=== PATIENT | female | born 1945 | race Caucasian/White ===

== ENCOUNTER 2016-07-02 10:24 | Day surgery (SDC) | payer MEDICARE ==
[2016-07-02] MEDS ORDERED: PROPOFOL 10 MG/ML VIAL IV ONE (15:46)
[2016-07-02] MEDS ORDERED: LIDOCAINE 2% MDV (20MG/ML) 20ML VIAL IV ONE (15:46)
[2016-07-02] MEDS ORDERED: MIDAZOLAM HCL 2MG/2ML VIAL IV ONE (15:46)
--- NOTE | 2016-07-03 16:30 | Operative Note ---
DATE OF SURGERY: 07/02/2016 OPERATION: COLONOSCOPY to the cecum with cold snare polypectomy. INDICATION: History of adenomatous polyps in the past. The patient returns at this time for surveillance after 5 years. ANESTHESIA: Intravenous sedation was administered by the department of anesthesiology and included Diprivan titrated to effect. PROCEDURE: Following informed consent from this alert individual, including a discussion of the risks and benefits of the procedure and an opportunity for the patient to ask questions, the patient was placed in the left lateral decubitus position. A digital rectal examination was performed. No abnormalities were noted. Following this, the Olympus [id number] video colonoscope was inserted into the rectum without resistance. The rectal mucosa had a normal appearance with normal folds and distensibility. The colonoscope was advanced up through the bowel to the level of the cecum without much difficulty. Throughout the bowel, the mucosa appeared normal, the folds are normal and the bowel was fairly well distensible. The colon preparation was good. From the base of the cecum, retroflexion was accomplished and failed to demonstrate any changes. The colonoscope was then withdrawn. No abnormalities were noted until the rectum was reached. Retroflexion in the rectum revealed a small 4-5 mm adenomatous-appearing polyp at the distal rectum. This was removed with cold snare polypectomy. Also noted were small internal hemorrhoids. No other changes appreciated. The patient tolerated the procedure well and was returned to the recovery area in stable condition. IMPRESSION: 1. Small distal rectal polyp noted as above measuring 4-5 mm in size removed with cold snare polypectomy. 2. Small internal hemorrhoids. RECOMMENDATIONS: Further recommendations will be forthcoming pending results of pathology obtained today. Followup will be with Dr. Young Patterson. As always, thank you for allowing me to participate in the care of your patient. Keyon Moran DO CC: Dr. Yesenia BERNSTEIN
== END 2016-07-02 13:23 | disposition home or self-care (01) ==
LOC: HOP 10:24
PROVIDERS: ATTEND Internal Medicine Gastroenterology
DX: Z09 Encounter for follow-up examination after completed treatment for conditions other than malignant neoplasm (principal); D12.8 Benign neoplasm of rectum; K64.8 Other hemorrhoids; I10 Essential (primary) hypertension; E11.9 Type 2 diabetes mellitus without complications; Z79.84 Long term (current) use of oral hypoglycemic drugs